=== PATIENT | female | born 1960 | race Caucasian/White ===

== ENCOUNTER 2023-12-16 15:37 | Emergency (ER) | payer OTHER ==
--- NOTE | 2023-12-16 16:11 | ED ---
URI HPI - General Stated Complaint: congestion Time Seen by Provider: 12/16/23 15:50 Source: patient, RN notes reviewed - History of Present Illness Initial Comments: This is a 63-year-old female presents emergency department with 2 of her granddaughters for chief complaint of not feeling well. Patient states that since yesterday she has been having cold symptoms including headache, nausea, vomiting, diarrhea, congestion and rhinorrhea. She denies known fevers. Patient denies chest pain, shortness of breath or difficulty breathing. States that her family members also been experiencing similar symptoms. - Related Data Previous Rx's Medication Instructions Recorded Sulfamethox-Tmp 800-160Mg [Bactrim 1 each PO Q12HR #20 tab 12/16/23 Ds] Allergies Allergy/AdvReac Type Severity Reaction Status Date / Time Penicillins Allergy Unknown Verified 12/16/23 16:30 Review of Systems ROS Statement: Those systems with pertinent positive or pertinent negative responses have been documented in the HPI. ROS Other: All systems not noted in ROS Statement are negative. General Exam General appearance: alert, in no apparent distress Eye exam: Present: normal appearance, PERRL, EOMI. Absent: scleral icterus, conjunctival injection, periorbital swelling ENT exam: Present: normal exam, mucous membranes moist, other (mild posterior oropharynx erythema, no tonsillomeagly) Neck exam: Present: normal inspection. Absent: tenderness, meningismus, lymphadenopathy Respiratory exam: Present: normal lung sounds bilaterally. Absent: respiratory distress, wheezes, rales, rhonchi, stridor Cardiovascular Exam: Present: regular rate, normal rhythm, normal heart sounds. Absent: systolic murmur, diastolic murmur, rubs, gallop, clicks GI/Abdominal exam: Present: soft, normal bowel sounds. Absent: distended, tenderness, guarding, rebound, rigid Extremities exam: Present: normal inspection, full ROM, normal capillary refill. Absent: tenderness, pedal edema, joint swelling, calf tenderness Back exam: Present: normal inspection Skin exam: Present: warm, other (mild scattered wounds over the right upper extremity, dorsal of the left foot, left upper arm, no purulence) Course Vital Signs 12/16/23 12/16/23 16:30 18:05 Temperature 98.8 F 98.4 F Pulse Rate 95 86 Respiratory 20 20 Rate Blood Pressure 114/67 120/68 O2 Sat by Pulse 98 97 Oximetry Medical Decision Making - Medical Decision Making Was pt. sent in by a medical professional or institution ([facility], [facility], urgent care, hospital, or [facility]...) When possible be specific @ -No Did you speak to anyone other than the patient for history (EMS, parent, family, police, friend...)? What history was obtained from this source @ -No Did you review nursing and triage notes (agree or disagree)? Why? @ -I reviewed and agree with nursing and triage notes Were old charts reviewed (outside hosp., previous admission, EMS record, old EKG, old radiological studies, urgent care reports/EKG's, [facility] records)? Report findings @ -No old charts were reviewed Differential Diagnosis (chest pain, altered mental status, abdominal pain women, abdominal pain men, vaginal bleeding, weakness, fever, dyspnea, syncope, headache, dizziness, GI bleed, back pain, seizure, CVA, palpatations, mental health, musculoskeletal)? @ -COVID 19, RSV, influenza, pneumonia, acute bronchitis, URI, this list is not all inclusive EKG interpreted by me (3pts min.). @ -None X-rays interpreted by me (1pt min.). @ -chest X-ray reveals a small area of infiltrate or pleural plaque to the right midlung, follow-up recommended with a small right pleural effusion CT interpreted by me (1pt min.). @ -None done U/S interpreted by me (1pt. min.). @ -None done What testing was considered but not performed or refused? (CT, X-rays, U/S, labs)? Why? @ -None What meds were considered but not given or refused? Why? @ -None Did you discuss the management of the patient with other professionals (professionals i.e. [facility], [facility] [facility], lab, RT, psych nurse, social work associate, leveling machine operator, teacher, chief revenue officer, director of casework department)? Give summary @ -No Was smoking cessation discussed for >3mins.? @ -No Was critical care preformed (if so, how long)? @ -No Were there social determinants of health that impacted care today? How? (Homelessness, low income, unemployed, alcoholism, drug addiction, transportation, low edu. Level, literacy, decrease access to med. care, detention, rehab)? @ -No Was there de-escalation of care discussed even if they declined (Discuss DNR or withdrawal of care, Hospice)? DNR status @ -No What co-morbidities impacted this encounter? (DM, HTN, Smoking, COPD, CAD, Cancer, CVA, ARF, Chemo, Hep., AIDS, mental health diagnosis, sleep apnea, morbid obesity)? @ -diabetes mellitus Was patient admitted / discharged? Hospital course, mention meds given and route, prescriptions, significant lab abnormalities, going to OR and other pertinent info. @ -Discharge. 63-year-old female with nausea, vomiting, congestion and headache. Patient.'s vitals are stable. Negative for COVID, flu, RSV, strep. Chest x-ray unremarkable for acute process. However recommend that she follow- up in the next few weeks for findings of a small area of infiltrate/pleural plaque. Additionally, arrival discussion with the patient she states that she has multiple nonhealing wounds of her bilateral upper extremities on the dorsum of her foot as well. Patient states that the symptoms have occurred in the past that she has a history of diabetes however she is concerned that the areas may be infected. Patient will be treated with a course of Bactrim and instructed to follow-up within the next 1 to 3 days with her primary care provider for further evaluation of diabetic ulcer formation/wounds. Patient recommend that she continue supportive treatment at home for viral syndrome including increasing hydration, rest, cycling Tylenol and Motrin as needed. All questions have been answered at bedside strict return parameters discussed with the patient she is verbalized understanding. Case discussed with Dr. Valentino Undiagnosed new problem with uncertain prognosis? @ -No Drug Therapy requiring intensive monitoring for toxicity (Heparin, Nitro, Insulin, Cardizem)? @ -No Were any procedures done? @ -No Diagnosis/symptom? @ -viral syndrome, diabetic ulcers Acute, or Chronic, or Acute on Chronic? @ -Acute Uncomplicated (without systemic symptoms) or Complicated (systemic symptoms)? @ -Uncomplicated Side effects of treatment? @ -No Exacerbation, Progression, or Severe Exacerbation? @ -No Poses a threat to life or bodily function? How? (Chest pain, [place], [place], pneumonia, PE, COPD, DKA, ARF, appy, cholecystitis, CVA, Diverticulitis, Homicidal, S uicidal, threat to staff... and all critical care pts) @ -No - Lab Data Lab Results 12/16/23 Range/Units 16:32 Influenza Type A (PCR) Not Detected (Not Detectd) Influenza Type B (PCR) Not Detected (Not Detectd) RSV (PCR) Not Detected (Not Detectd) SARS-CoV-2 (PCR) Not Detected (Not Detectd) Disposition Clinical Impression: Wound of foot, Viral syndrome, Nausea and vomiting Disposition: HOME SELF-CARE Condition: Good Instructions (If sedation given, give patient instructions): Viral Syndrome (ED), Diabetes and Your Skin (ED) Additional Instructions: Please return to the Emergency Department if symptoms worsen or any other concerns. Complete full course of antibiotic as prescribed. Recommend they follow-up with your primary care provider within the next week for further evaluation of wounds. Continue to keep wounds clean and dry as well. Prescriptions: Sulfamethox-Tmp 800-160Mg [Bactrim Ds] 1 each PO Q12HR #20 tab Is patient prescribed a controlled substance at d/c from ED?: No Referrals: None,Stated [Primary Care Provider] - 1-2 days Time of Disposition: 17:43
[2023-12-16 16:33] VITALS: RESP 20
--- NOTE | 2023-12-16 17:35 | XR ---
EXAMINATION TYPE: XR chest 2V DATE OF EXAM: 12/16/2023 COMPARISON: None INDICATION: Abdominal pain nausea vomiting diarrhea runny nose headache TECHNIQUE: Frontal and lateral views of the chest are obtained. FINDINGS: The heart size is normal. The pulmonary vasculature is normal. There is a patchy infiltrate or pleural plaque along the right mid lung. Follow-up is recommended. So me minimal blunting the right costophrenic angle suggests underlying small pleural effusion. IMPRESSION: 1. Small area of infiltrate or pleural plaque right midlung. Follow-up recommended. 2. Small right pleural effusion. [facility], Workstation: [facility], 12/16/2023 5:32 PM
[2023-12-16 18:06] VITALS: BP 120/68; PULSE 86; TEMP 98.4
== END 2023-12-16 18:06 | disposition home or self-care (01) ==
LOC: EC 15:37
CPT/HCPCS: 71046; 87636; 99283